=== PATIENT | female | born 2000 | race Caucasian/White ===

== ENCOUNTER → 2022-12-06 11:41 | Outpatient (CLI) | payer OTHER, SELFPAY ==
[2022-12-06 18:26] LABS: Basophils % 0.3 % (0.1-2.0); Eosinophils # 0.1 K/mm3 (0.0-0.4); Eosinophils % 1.1 % (0.1-12.0); Hematocrit 38.6 % (37.0-47.0); Hemoglobin 12.4 g/dL (12.2-16.2); Lymphocytes # 3.7 K/mm3 (0.7-4.5); Lymphocytes % 30.2 % (10-50); Mean Corpuscular HGB Conc 32.2 g/dL (31.8-35.4); Mean Corpuscular Hemoglobin 28.5 pg (27.0-31.2); Mean Corpuscular Volume 88.7 fl (81-99); Mean Platelet Volume 8.9 fl (7.4-10.4); Monocytes # 0.5 K/mm3 (0.1-1.0); Monocytes % 3.8 % (1.7-9.3); Neutrophils % 64.6 % (37.0-80.0); Platelet Count 398 K/mm3 (142-424); Red Blood Count 4.35 M/mm3 (4.20-5.40); Red Cell Distribution Width 13.8 % (11.5-17.5); White Blood Count 12.4 K/mm3 (4.8-10.8)
[2022-12-06 18:34] LABS: Alanine Aminotransferase 21 U/L (12-78); Albumin Level 3.9 g/dl (3.5-5.0); Albumin/Globulin Ratio 1.4 (1.1-1.8); Alkaline Phosphatase 73 U/L (38-126); Anion Gap 16.2 mEq/L (5-15); Aspartate Amino Transferase 25 U/L (14-36); Bilirubin,Total 0.3 mg/dl (0.2-1.3); Blood Urea Nitrogen 14 mg/dl (7-17); Calcium 9.1 mg/dl (8.4-10.2); Carbon Dioxide 22 mmol/L (22.0-30.0); Chloride 104 mmol/L (98-107); Chol/HDL Ratio 1.8 (1-3.5); Cholesterol 201 mg/dl (140-200); Estimated Glomerular Filt Rate 124 ml/min (>60); GFR (African American) 150 ML/MIN (>60); Globulin 2.8 g/dL (1.3-3.2); Glucose 130 mg/dl (74-100); HDL Cholesterol 109 mg/dl (40-60); Potassium 4.2 mmoL/L (3.5-5.1); Sodium 138 mmol/L (136-145); Total Protein,Serum 6.7 g/dl (6.3-8.2); Triglycerides 186 mg/dl (30-150); VLDL Cholesterol 37 mg/dL (0-40)
[2022-12-06 18:44] LABS: Direct LDL Cholesterol 84.69 mg/dL (100-129)
[2022-12-06 18:51] LABS: 25-OH Vitamin D, Total 33.9 ng/mL (30-100)
[2022-12-06 19:04] LABS: Thyroid Stimulating Hormone 3.76 uIU/mL (0.465-4.68)
[2022-12-06 19:23] LABS: Vitamin B12 225 pg/mL (239-931)
== END ==
PROVIDERS: PCP Nurse Practitioner; Visit Provider Nurse Practitioner
DX: Z00.00 Encounter for general adult medical examination without abnormal findings (principal); F41.8 Other specified anxiety disorders; Z13.1 Encounter for screening for diabetes mellitus; Z13.220 Encounter for screening for lipoid disorders; E66.9 Obesity, unspecified; Z68.42 Body mass index [BMI] 45.0-49.9, adult
CPT/HCPCS: 80053; 80061; 82306; 82607; 83036; 84443; 85025

== ENCOUNTER 2023-07-11 10:33 | Outpatient (CLI) | payer OTHER, SELFPAY ==
[2023-07-11 23:45] LABS: Amphetamine/Metha Screen,Urine Negative ng/ml (<1000); Barbiturates Screen,Urine Negative ng/ml (<200); Benzodiazepines Screen,Urine Negative ng/ml (<200); Cannabinoid Screen,Urine Negative ng/ml (<50); Cocaine Screen,Urine Negative ng/ml (<300); Methadone Screen,Urine Negative ng/ml (<300); Opiate Screen,Urine Negative ng/ml (<300); Phencyclidine Screen,Urine Negative ng/ml (<25)
== END 2023-07-11 23:59 ==
LOC: LAB.DROPOF 07-12 10:33
PROVIDERS: PCP Nurse Practitioner; Visit Provider Nurse Practitioner Acute Care
DX: Z79.899 Other long term (current) drug therapy (principal)
CPT/HCPCS: 80307

== ENCOUNTER 2023-08-14 22:07 | Outpatient (CLI) | payer OTHER, SELFPAY ==
[2023-08-14 18:39] LABS: Barbiturates Screen,Urine Negative ng/ml (<200)
[2023-08-14 18:40] LABS: Benzodiazepines Screen,Urine Negative ng/ml (<200)
[2023-08-14 18:41] LABS: Amphetamine/Metha Screen,Urine Negative ng/ml (<1000); Methadone Screen,Urine Negative ng/ml (<300)
[2023-08-14 18:42] LABS: Cannabinoid Screen,Urine Negative ng/ml (<50)
[2023-08-14 18:43] LABS: Cocaine Screen,Urine Negative ng/ml (<300); Opiate Screen,Urine Negative ng/ml (<300)
[2023-08-14 18:44] LABS: Phencyclidine Screen,Urine Negative ng/ml (<25)
== END 2023-08-14 23:59 ==
LOC: LAB.DROPOF 22:07
PROVIDERS: PCP Nurse Practitioner Acute Care; Visit Provider Nurse Practitioner Acute Care
DX: Z79.899 Other long term (current) drug therapy (principal)
CPT/HCPCS: 80307

== ENCOUNTER 2023-08-18 21:56 | Outpatient (CLI) | payer OTHER, SELFPAY ==
[2023-08-18 21:32] LABS: Phencyclidine Screen,Urine Negative ng/ml (<25)
[2023-08-18 21:38] LABS: Amphetamine/Metha Screen,Urine Negative ng/ml (<1000)
[2023-08-18 21:42] LABS: Cannabinoid Screen,Urine Negative ng/ml (<50)
[2023-08-18 21:43] LABS: Barbiturates Screen,Urine Negative ng/ml (<200)
[2023-08-18 21:44] LABS: Benzodiazepines Screen,Urine Negative ng/ml (<200); Opiate Screen,Urine Negative ng/ml (<300)
[2023-08-18 21:45] LABS: Cocaine Screen,Urine Negative ng/ml (<300); Methadone Screen,Urine Negative ng/ml (<300)
[2023-08-21 13:30] LABS: Amphetamine/Metha Screen,Urine Negative ng/ml (<1000)
== END 2023-08-18 23:59 ==
LOC: LAB.DROPOF 21:57
PROVIDERS: PCP Nurse Practitioner Acute Care; Visit Provider Nurse Practitioner Acute Care
DX: Z79.899 Other long term (current) drug therapy (principal)
CPT/HCPCS: 80307

== ENCOUNTER 2023-08-21 09:29 | Outpatient (CLI) | payer OTHER, SELFPAY ==
[2023-08-30 15:17] LABS: Amphetamines Negative (Cutoff=500)
== END 2023-08-21 23:59 ==
LOC: LAB.DROPOF 08-28 09:29
PROVIDERS: PCP Nurse Practitioner Acute Care; Visit Provider Nurse Practitioner Acute Care
DX: F90.2 Attention-deficit hyperactivity disorder, combined type (principal); Z79.899 Other long term (current) drug therapy
CPT/HCPCS: 80324

== ENCOUNTER 2023-09-06 18:38 | Outpatient (CLI) | payer OTHER, SELFPAY ==
[2023-09-06 20:45] LABS: Barbiturates Screen,Urine Negative ng/ml (<200); Benzodiazepines Screen,Urine Negative ng/ml (<200)
[2023-09-06 20:46] LABS: Cannabinoid Screen,Urine Negative ng/ml (<50)
[2023-09-06 20:47] LABS: Methadone Screen,Urine Negative ng/ml (<300)
[2023-09-06 20:48] LABS: Opiate Screen,Urine Negative ng/ml (<300); Phencyclidine Screen,Urine Negative ng/ml (<25)
[2023-09-06 21:04] LABS: Cocaine Screen,Urine Negative ng/ml (<300)
[2023-09-06 21:05] LABS: Amphetamine/Metha Screen,Urine Negative ng/ml (<1000)
[2023-09-11 18:09] LABS: Amphetamine Positive (.); Amphetamine (GC/MS) 822 ng/mL (Cutoff=500); Amphetamines Positive (.); Methamphetamine Negative (Cutoff=500)
== END 2023-09-06 23:59 ==
LOC: LAB.DROPOF 18:38
PROVIDERS: PCP Nurse Practitioner Acute Care; Visit Provider Nurse Practitioner Acute Care
DX: Z79.899 Other long term (current) drug therapy (principal)
CPT/HCPCS: 80307; 80324

== ENCOUNTER 2023-10-16 23:06 | Outpatient (CLI) | payer OTHER, SELFPAY ==
[2023-10-16 18:13] LABS: Basophils # 0.1 K/mm3 (0-0.2); Basophils % 0.5 % (0.1-2.0); Eosinophils # 0.1 K/mm3 (0.0-0.4); Eosinophils % 1.3 % (0.1-12.0); Hematocrit 40.8 % (37.0-47.0); Hemoglobin 13.1 g/dL (12.2-16.2); Lymphocytes # 3.7 K/mm3 (0.7-4.5); Lymphocytes % 36.5 % (10-50); Mean Corpuscular HGB Conc 32.1 g/dL (31.8-35.4); Mean Corpuscular Hemoglobin 29.3 pg (27.0-31.2); Mean Corpuscular Volume 91.3 fl (81-99); Mean Platelet Volume 8.9 fl (7.4-10.4); Monocytes # 0.4 K/mm3 (0.1-1.0); Monocytes % 4.3 % (1.7-9.3); Neutrophils # 5.8 K/mm3 (1.8-7.8); Neutrophils % 57.4 % (37.0-80.0); Platelet Count 317 K/mm3 (142-424); Red Blood Count 4.47 M/mm3 (4.20-5.40); Red Cell Distribution Width 13.3 % (11.5-17.5); White Blood Count 10.2 K/mm3 (4.8-10.8)
[2023-10-16 18:49] LABS: Alanine Aminotransferase 21 U/L (12-78); Albumin Level 3.9 g/dl (3.5-5.0); Albumin/Globulin Ratio 1.4 (1.1-1.8); Alkaline Phosphatase 84 U/L (38-126); Anion Gap 10.2 mEq/L (5-15); Aspartate Amino Transferase 25 U/L (14-36); Bilirubin,Total 0.5 mg/dl (0.2-1.3); Blood Urea Nitrogen 12 mg/dl (7-17); Calcium 9.4 mg/dl (8.4-10.2); Carbon Dioxide 24 mmol/L (22.0-30.0); Chloride 107 mmol/L (98-107); Chol/HDL Ratio 2.6 (1-3.5); Cholesterol 178 mg/dl (140-200); Estimated Glomerular Filt Rate 123 ml/min (>60); GFR (African American) 149 ML/MIN (>60); Globulin 2.7 g/dL (1.3-3.2); Glucose 83 mg/dl (74-100); HDL Cholesterol 69 mg/dl (40-60); Potassium 4.2 mmoL/L (3.5-5.1); Sodium 137 mmol/L (136-145); Total Protein,Serum 6.6 g/dl (6.3-8.2); Triglycerides 70 mg/dl (30-150); VLDL Cholesterol 14 mg/dL (0-40)
[2023-10-16 19:01] LABS: Direct LDL Cholesterol 84.28 mg/dL (100-129)
[2023-10-16 19:14] LABS: 25-OH Vitamin D, Total 25.8 ng/mL (30-100)
[2023-10-16 19:25] LABS: Thyroid Stimulating Hormone 2.84 uIU/mL (0.465-4.68)
[2023-10-16 19:44] LABS: Vitamin B12 319 pg/mL (239-931)
[2023-10-16 20:20] LABS: Hemoglobin A1C 5.2 % (4.0-6.0)
== END 2023-10-16 23:59 | disposition home or self-care (01) ==
LOC: LAB.DROPOF 23:06
PROVIDERS: PCP Nurse Practitioner; Visit Provider Nurse Practitioner
DX: R11.0 Nausea (principal); Z13.1 Encounter for screening for diabetes mellitus; Z13.220 Encounter for screening for lipoid disorders; E53.8 Deficiency of other specified B group vitamins; E55.9 Vitamin D deficiency, unspecified; Z79.899 Other long term (current) drug therapy
CPT/HCPCS: 80053; 80061; 82306; 82607; 83036; 84443; 85025

== ENCOUNTER 2023-11-23 18:50 | Outpatient (CLI) | payer OTHER, SELFPAY ==
[2023-11-23 19:23] LABS: Adenovirus,PCR Not Detected (NotDetected); Bordetella Pertussis Not Detected (NotDetected); Chlamydophila Pneumoniae, PCR Not Detected (NotDetected); Coronavirus 19, PCR Not Detected (NotDetected); Coronavirus 229E Not Detected (NotDetected); Coronavirus NL63 Not Detected (NotDetected); Coronavirus OC43 Not Detected (NotDetected); Coronovirus HKU1,PCR Not Detected (NotDetected); Human Metapneumovirus Not Detected (NotDetected); Influenza A, PCR Not Detected (NotDetected); Influenza AH1, 2009 Not Detected (NotDetected); Influenza AH1, PCR Not Detected (NotDetected); Influenza AH3,PCR Not Detected (NotDetected); Influenza B, PCR Not Detected (NotDetected); Mycoplasma Pneumoniae, PCR Not Detected (NotDetected); Parainfluenza 1, PCR Not Detected (NotDetected); Parainfluenza 2, PCR Not Detected (NotDetected); Parainfluenza 3, PCR Not Detected (NotDetected); Parainfluenza 4, PCR Not Detected (NotDetected); Respiratory Syncytial Virus Not Detected (NotDetected); Rhinovirus/Enterovirus Not Detected (NotDetected)
== END 2023-11-23 23:59 | disposition home or self-care (01) ==
LOC: LAB.DROPOF 18:51
PROVIDERS: PCP Family Medicine; Visit Provider Family Medicine
DX: R05.9 Cough, unspecified (principal); J02.9 Acute pharyngitis, unspecified
CPT/HCPCS: 87581; 87632; 87635; 87798

== ENCOUNTER 2024-11-04 11:19 | Outpatient (CLI) | payer OTHER, SELFPAY ==
[2024-11-04 19:32] LABS: Albumin Level 3.9 g/dl (3.5-5.0); Chloride 108 mmol/L (98-107); Potassium 4.5 mmoL/L (3.5-5.1); Sodium 138 mmol/L (136-145)
[2024-11-04 19:35] LABS: Alanine Aminotransferase 19 U/L (12-78); Albumin/Globulin Ratio 1.4 (1.1-1.8); Alkaline Phosphatase 73 U/L (38-126); Anion Gap 12.5 mEq/L (5-15); Aspartate Amino Transferase 27 U/L (14-36); Bilirubin,Total 0.4 mg/dl (0.2-1.3); Blood Urea Nitrogen 10 mg/dl (7-17); Calcium 9.5 mg/dl (8.4-10.2); Carbon Dioxide 22 mmol/L (22.0-30.0); Estimated Glomerular Filt Rate 150 ml/min (>60); GFR (African American) 182 ML/MIN (>60); Globulin 2.8 g/dL (1.3-3.2); Glucose 71 mg/dl (74-100); Total Protein,Serum 6.7 g/dl (6.3-8.2)
== END 2024-11-04 23:59 | disposition home or self-care (01) ==
LOC: LAB.DROPOF 11-05 10:42
PROVIDERS: PCP Nurse Practitioner; Visit Provider Nurse Practitioner
DX: F41.1 Generalized anxiety disorder (principal)
CPT/HCPCS: 80053

== ENCOUNTER 2025-05-05 11:45 | Outpatient (CLI) | payer OTHER, SELFPAY ==
[2025-05-05 16:18] LABS: Hematocrit 39.7 % (37.0-47.0); Hemoglobin 12.6 g/dL (12.2-16.2); Immature Granulocytes % 0.2 %; Mean Corpuscular HGB Conc 31.7 g/dL (31.8-35.4); Mean Corpuscular Hemoglobin 28.4 pg (27.0-31.2); Mean Corpuscular Volume 89.6 fl (81-99); Nucleated Red Blood Cells % 0 %; Platelet Count 373 K/mm3 (142-424); Red Blood Count 4.43 M/mm3 (4.20-5.40); Red Cell Distribution Width-SD 43.8 fL; White Blood Count 10.0 K/mm3 (4.8-10.8)
[2025-05-05 17:41] LABS: Alanine Aminotransferase 17 U/L (12-78); Albumin Level 3.5 g/dl (3.5-5.0); Albumin/Globulin Ratio 1.1 (1.1-1.8); Alkaline Phosphatase 85 U/L (38-126); Anion Gap 13.4 mEq/L (5-15); Aspartate Amino Transferase 19 U/L (14-36); Bilirubin,Total 0.7 mg/dl (0.2-1.3); Blood Urea Nitrogen 19 mg/dl (7-17); Calcium 9.2 mg/dl (8.4-10.2); Carbon Dioxide 25 mmol/L (22.0-30.0); Chloride 105 mmol/L (98-107); Creatinine,Serum 0.70 mg/dl (0.52-1.04); Estimated Glomerular Filt Rate 102 ml/min (>60); GFR (African American) 123 ML/MIN (>60); Globulin 3.1 g/dL (1.3-3.2); Glucose 86 mg/dl (74-100); Potassium 4.4 mmoL/L (3.5-5.1); Sodium 139 mmol/L (136-145); Total Protein,Serum 6.6 g/dl (6.3-8.2)
[2025-05-05 18:07] LABS: Thyroid Stimulating Hormone 2.62 uIU/mL (0.465-4.68)
[2025-05-05 18:26] LABS: Vitamin B12 347 pg/mL (239-931)
[2025-05-05 18:32] LABS: Hepatitis C Ab Qual. W/ RFX NEGATIVE (Negative)
[2025-05-05 19:19] LABS: 25-OH Vitamin D, Total 17.0 ng/mL (30-100)
[2025-05-06 05:09] LABS: Hepatitis B Surface Antigen Negative (Negative)
--- OUTSIDE RECORDS SUMMARY | 2025-05-06 11:21 | XMS_ITS | Clinical Summary ---
Author Organization [facility] Address [address] [place], [place] [address] Phone Care Team Providers Care Autocad Name Role Phone Unavailable Primary Care Provider Unavailabl e Allergies No known active allergies Medications Cetirizine (ZYRTEC) 10 mg Cap Take by mouth. Active Multivitamin Cmb No.21-Iron-FA (DAILY TEEN MULTI-VITAMIN) 18-400 mg-mcg Tab Take by mouth. Active Active Problems Problem Noted Date Diagnosed Date Allergic rhinitis 01/13/2011 Immunizations Immunization Administration Dates Next Due DTaP 09/01/2003, 1,02/23/2000,12/14,1999 HPV Quadrivalent 08/04/2011,03/16/2011, 1 Hepatitis B, Unspecified Formulation 08/23/2000, 1999,1999 HiB, Unspecified Formulation 08/23/2000,12/15/19 00,1999 IPV 09/01/2003, 0,1999,10/12 LAST MANUFACTURED 2010-Pneum ococcal Conjugate 7 Valent 04/04/2001,08/23/2000,05/17/2000,02/22 MMR 09/01/2003,04/04/2001 Meningococcal Conjugate 01/13/2011 Tdap 01/13/2011 Varicella 08/23/2000 Surgical History Surgery Date Site/Laterality Comments TONSILLECTOMY ADENOIDECTOMY Medical History Medical History Date Comments Allergic rhinitis 01/13/2011 Family History Medical History Relation Name Comments Cancer Paternal Grandfather Diabetes Paternal Grandfather Cancer Paternal Grandmother Diabetes Paternal Grandmother Relation Name Status Comments Paternal Grandfather Alive Paternal Grandmother Alive Social History Tobacco Use Types Packs/Day Years Used Date Smoking Tobacco: Never Alcohol Use Standard Drinks/Week Comments Not Asked 0 (1 standard drink = 0.6 oz pur e alcohol) Comments No Sex and Gender Information Value Date Recorded Sex Assigned at Not on file Legal Sex Female 6:43 PM EDT Gender Identity Not on file Sexual Orientation Not on file Last Filed Vital Signs Vital Sign Reading Time Taken Comments Blood Pressure 102/62 01/13/2011 9:35 AM EDT Pulse 73 01/13/2011 9:35 AM EDT Temperature 37.2 C (98.9 F) 01/13/2011 9:35 AM EDT Respiratory Rate - - Oxygen Saturation 99% 01/13/2011 9:35 AM EDT Inhaled Oxygen Concentration - - Weight 66.1 kg (145 lb 12.8 oz) 01/13/2011 9:35 AM EDT Height 157.5 cm (5' 2 ) 01/13/2011 9:35 AM EDT Body Mass Index 26.67 01/13/2011 9:35 AM EDT Plan of Treatment Health Maintenance Due Date Last Done Comments Annual Wellness Exam 2002 Cervical Cancer Screening 2020 Pap Smear 2020 DTaP/TDaP/Td (7 - Td or Tdap) 01/13/2021 01/13/2011, 09/01/2003, 04/04/2001, Additional history exists COVID-19 Vaccine (2024- season) 2025 Influenza Vaccine (#1) 2025 Hepatitis B Vaccine Completed 08/23/2000, 1999, 1999 Pneumococcal Vaccine 0-49 Aged Out 2000, 08/23/2000, 05/17/2000, Additional history exists No longer eligible based on patient's age to complete this topic HPV Completed 08/04/2011, 01/2011, 01/13/2011 Meningococcal B Vaccine Aged Out No l onger eligible based on patient's age to complete this topic Insurance [facility] CHOICE
--- OUTSIDE RECORDS SUMMARY | 2025-05-06 11:21 | XMS_ITS | Patient Health Record ---
[facility] [address] [facility] [address] [place] [phone] Care Team Providers Care Diet Assistant Name Role Phone Sonali Hamilton Primary Care Provider Allergies No Known Allergies Reason For Referral No Information Medications Medication SIG (Take, Route, Frequency, Duration) Notes Start Date End Date Status Tri-Sprintec 0.18/0.215/0.25 MG-35 MCG TAKE 1 TABLET BY MOUTH DAILY; Duration: 28 Active Atomoxetine HCl 40 MG 1 cap(s) orally on ce a day (in the morning); Duration: 30 day(s) Active Sertraline HCl 50 MG 1 tab(s) orally onc e a day; Duration: 90 days Active Mupirocin 2 % 1 marbin applied topica lly 3 times a day; Duration: 10 day(s) Active Immunizations Vaccine Route Administration Date Status Comme nts COVID 19 Pfizer Unknown 12/15/2020 Administered COVID 19 Pfizer Unknown 01/05/2021 Administered Problems Problem Type SNOMED Code ICD Code Onset Dates Problem Status W/U Status Risk Notes Problem Mixed anxiety and depressive disorder (145033973) Depression with anxiety (F41.8) Active confirmed Problem Attention deficit hyperactivity disorder (967513973) Attention deficit disorder, unspecified hyperactivity presence (F98.8) Active confirmed Plan Of Treatment No Information Insurance Providers Payer Name Payer Address Payer Phone Subscriber Number Group Number Insured Name Patient Relationship to Insured Coverage Start Date Coverage End Date [facility] [address] [address] [place] [address] [phone] [id number] Farideh Andrea Self - patient is the insured Medical (General) History Medical History History ICD Code acne Surgical History Surgery Date(Month/Year) tonsillectomy adenoidectomy
== END 2025-05-05 23:59 ==
LOC: LAB.DROPOF 05-06 11:17
PROVIDERS: PCP Nurse Practitioner; Visit Provider Nurse Practitioner
DX: E55.9 Vitamin D deficiency, unspecified (principal); F41.1 Generalized anxiety disorder; F32.A Depression, unspecified; E53.8 Deficiency of other specified B group vitamins; Z11.59 Encounter for screening for other viral diseases
CPT/HCPCS: 80053; 82306; 82607; 84443; 85025; 86803; 87340; 87389